=== PATIENT | female | born 1990 | race Asian ===

== ENCOUNTER 2016-12-25 15:36 | Inpatient (IN) | payer OTHER ==
[2016-12-25 19:41] VITALS: BMI 20.7
--- NOTE | 2016-12-25 20:58 | HP ---
Screened but not Admitted - Documentation of Visit Screened but not Admitted: Yes Left Prior to Completion of Assessment: No Insurance Authorization Denied: No Patient Does Not Meet Criteria for Admission: Yes Level of Care Recommended at this Time: Other (home)
--- NOTE | 2016-12-25 22:44 | HP ---
Admission ROS [facility] - [facility] Chief Complaint: I WANT TO GO TO REHAB Allergies/Adverse Reactions: Allergies Allergy/AdvReac Type Severity Reaction Status Date / Time No Known Allergies Allergy Verified 12/25/16 19:35 History of Present Illness: 26 YEARS OLD FEMALE WITH LONG HISTORY OF ALCOHOL DEPENDENCE, DENIES MEDICAL DENIES MENTAL ISSUES IS ADMITTED TO REHAB Exam Limitations: No Limitations - Ebola screening Have you traveled outside of the country in the last 21 days: No Have you had contact with anyone from an Ebola affected area: No Have you been sick,other than usual withdrawal symptoms: No Do you have a fever: No - Review of Systems Constitutional: Weight Stable EENT: reports: No Symptoms Reported Respiratory: reports: Productive cough (YELLOWISH) Cardiac: reports: No Symptoms Reported GI: reports: No Symptoms Reported : reports: No Symptoms Reported Musculoskeletal: reports: Back Pain Integumentary: reports: No Symptoms Reported Neuro: reports: No Symptoms reported Endocrine: reports: No Symptoms Reported Hematology: reports: No Symptoms Reported Psychiatric: reports: Judgement Intact, Mood/Affect Appropiate, Orientated x3, Anxious Other Systems: Reviewed and Negative Patient History - Patient Medical History Hx Anemia: No Hx Asthma: No Hx Chronic Obstructive Pulmonary Disease (COPD): No Hx Cancer: No Hx Cardiac Disorders: No Hx Congestive Heart Failure: No Hx Hypertension: No Hx Hypercholesterolemia: No Hx Pacemaker: No HX Cerebrovascular Accident: No Hx Seizures: No Hx Dementia: No Hx Diabetes: No Hx Gastrointestinal Disorders: No Hx Liver Disease: No Hx Genitourinary Disorders: No Hx Sexually Transmitted Disorders: No Hx Renal Disease (ESRD): No Hx Thyroid Disease: No Hx Human Immunodeficiency Virus (HIV): No Hx Hepatitis C: No Hx Depression: No Hx Suicide Attempt: No Hx Bipolar Disorder: No Hx Schizophrenia: No - Patient Surgical History Past Surgical History: No - PPD History Previous Implant?: Yes Documented Results: Negative w/o proof Implanted On Prior [facility] Admission?: No PPD to be Administered?: Yes - Reproductive History Patient is a Female of Child Bearing Age (11 -55 yrs old): Yes Last Menstrual Period: 12/04/16 Patient : No - Smoking Cessation Smoking history: Never smoked Have you smoked in the past 12 months: No Hx Chewing Tobacco Use: No Initiated information on smoking cessation: No - Substance & Tx. History Hx Alcohol Use: Yes Hx Substance Use: No Substance Use Type: Alcohol Hx Substance Use Treatment: No - Substances Abused Alcohol Route: Oral Frequency: 3-6 times per week Amount used: 24OZ [id number]+[id number] BEER Age of first use: 23 Date of Last Use: 12/25/16 Family Disease History - Family Disease History Family Disease History: Respiratory: Mother, Other: Father (NO CONTACT) Admission Physical Exam [facility] - Vital Signs Vital Signs: Vital Signs - 24 hr 12/25/16 19:37 Temperature 97.4 F L Pulse Rate 125 H Respiratory 18 Rate Blood Pressure 119/79 - Physical General Appearance: Yes: No Apparent Distress, Appropriately Dressed, Thin HEENTM: Yes: Hearing grossly Normal, Normal ENT Inspection, Normocephalic, Normal Voice Respiratory: Yes: Chest Non-Tender, Lungs Clear, Normal Breath Sounds, No Respiratory Distress, No Accessory Muscle Use Neck: Yes: Supple, Trachea in good position Breast: Yes: Breasts Symetrical Cardiology: Yes: Regular Rhythm, S1, S2, Tachycardia Abdominal: Yes: Non Tender, Soft Genitourinary: Yes: Within Normal Limits Back: Yes: Normal Inspection Musculoskeletal: Yes: full range of Motion, Gait Steady, Back pain Extremities: Yes: Normal Inspection, Normal Range of Motion, Non-Tender Neurological: Yes: Fully Oriented, Alert, Motor Strength 5/5, Normal Mood/Affect , Normal Response Integumentary: Yes: Warm Lymphatic: Yes: Within Normal Limits - Diagnostic (1) Alcohol dependence with uncomplicated withdrawal Current Visit: Yes Status: Acute (2) Anxiety Current Visit: Yes Status: Suspected Cleared for Admission [facility] - Detox or Rehab [facility] Level of Care: Observation Bed Detox Regimen/Protocol: Not Applicable Claeared for Rehab Admission: Yes [facility] Breath Alcohol Content Breath Alcohol Content: 0.178 Urine Pregancy Test - Result Urine Test Results: Negative- NO Line Present Urine Drug Screen - Results Drug Screen Negative: No Urine Drug Screen Results: TCA-Tricyclic Antidepress
[2016-12-25] MEDS ORDERED: MAGNESIUM CITRATE 300 ML BOTTLE PO PRN (23:08)
[2016-12-25] MEDS ORDERED: LOPERAMIDE HCL 2 MG CAPSULE PO PRN (23:08)
[2016-12-25] MEDS ORDERED: P-EPHED 60MG/TRIPROLIDI 2.5MG TABLET PO PRN (23:08)
[2016-12-25] MEDS ORDERED: MENTHOL/PHENOL 1 EACH UD MM PRN (23:08)
[2016-12-26] MEDS ORDERED: PNEUMOC 13-VAL CONJ-DIP CRM/PF 0.5 ML DISP.SYRIN IM ONE (00:28)
[2016-12-26] MEDS: diphenhydrAMINE HCL 50 MG CAPSULE PO PRN ×2 (00:37→21:19)
[2016-12-26] MEDS: guaiFENesin/D-METHORPHAN HB 10 ML UNIT-DOSE CUPS PO PRN (00:38)
--- NOTE | 2016-12-26 09:39 | HP ---
Psychiatrist Admission - Data Date of interview: 12/26/16 Admission source: [facility] Identifying data: This is the first admission to [address] [place] [address] rehabilitation for this 26 years old female no children,resides with family,unemployed supported by family. Medical History: unremarkable. Psychiatric History: denies Physical/Sexual Abuse/Trauma History: denies Vital Signs: Vital Signs - 24 hr 12/25/16 12/26/16 12/26/16 19:37 00:30 03:30 Temperature 97.4 F L 97.6 F Pulse Rate 125 H 64 Respiratory 18 18 16 Rate Blood Pressure 119/79 118/83 12/26/16 12/26/16 07:25 09:25 Temperature 98.4 F Pulse Rate 103 H 114 H Respiratory 18 Rate Blood Pressure 122/81 117/85 Allergies/Adverse Reactions: Allergies Allergy/AdvReac Type Severity Reaction Status Date / Time No Known Allergies Allergy Verified 12/25/16 19:35 Date of last physical exam: 12/25/16 Concur with the findings of this exam: Yes - Substance Abuse/Tx History Hx Alcohol Use: Yes (reports drinking since 23 yo,beer about 6 packs,vodka/ whiskey on and off) Hx Substance Use: No Substance Use Type: Alcohol Hx Substance Use Treatment: Yes (this is the first skilled nursing inpatient rehabilitation treatment ) - Admission Criteria Previous failed treatment: Yes Poor recovery environment: Yes Comorbidities: Yes Lacks judgement: Yes Mental Status Exam - Mental Status Exam Alert and Oriented to: Time, Place, Person Cognitive Function: Grossly Intact Patient Appearance: Well Groomed Mood: Euthymic Affect: Mood Congruent Patient Behavior: Cooperative Speech Pattern: Clear Voice Loudness: Normal Thought Process: Goal Oriented Thought Disorder: Not Present Hallucinations: Denies Suicidal Ideation: Denies Homicidal Ideation: Denies Insight/Judgement: Good Sleep: Fair Appetite: Good Muscle strength/Tone: Normal Gait/Station: Normal Psychiatric Findings - Problem List ([place] 1, 2,3) (1) Alcohol dependence with uncomplicated withdrawal Current Visit: Yes Status: Chronic - Initial Treatment Plan Initial Treatment Plan: Will monitor progress.
[2016-12-26] MEDS: PRENATAL VITAMINS W/ FOLIC ACID TABLET (FP) PO SCH (09:57)
[2016-12-26 10:10] LABS: URINE APPEARANCE CLEAR; URINE BILIRUBIN NEGATIVE (NEGATIVE); URINE BLOOD NEGATIVE (NEGATIVE); URINE COLOR YELLOW; URINE GLUCOSE (UA) NEGATIVE (NEGATIVE); URINE KETONE NEGATIVE (NEGATIVE); URINE LEUK ESTERASE NEGATIVE (NEGATIVE); URINE NITRITE NEGATIVE (NEGATIVE); URINE UROBILINOGEN NEGATIVE E.U./dl (0.2-1.0)
[2016-12-26 10:10] LABS: MCH 30.1 pg (25.7-33.7); MCHC 32.9 g/dl (32.0-36.0); MEAN CELL VOLUME 91.3 fl (80-96); MEAN PLT VOLUME 8.9 fl (7.5-11.1); PLATELET COUNT 207 K/MM3 (134-434); RDW 16.2 % (11.6-15.6); WHITE BLOOD COUNT 6.2 K/mm3 (4.0-10.0)
[2016-12-26 10:23] LABS: ALBUMIN 3.8 g/dl (3.4-5.0); ANION GAP 9 (8-16); CALCIUM 9.1 mg/dL (8.5-10.1); CO2 33 mmol/L (21-32); GLUCOSE,RANDOM 85 mg/dL (74-106); SGPT/ALT 106 U/L (12-78)
[2016-12-26 10:26] LABS: ALK PHOS 111 U/L (45-117); BILIRUBIN,TOTAL 0.9 mg/dL (0.2-1.0); CREATININE 0.6 mg/dL (0.55-1.02); SGOT/AST 202 U/L (15-37)
--- NOTE | 2016-12-26 11:08 | EKG ---
Test Reason : Blood Pressure : / mmHG Vent. Rate : 097 BPM Atrial Rate : 097 BPM P-R Int : 142 ms QRS Dur : 074 ms QT Int : 352 ms P-R-T Axes : 051 042 042 degrees QTc Int : 447 ms NORMAL SINUS RHYTHM POSSIBLE LEFT ATRIAL ENLARGEMENT BORDERLINE ECG NO PREVIOUS ECGS AVAILABLE Confirmed by NICHO MOURA, FRANCIE ([id number]) on 12/26/2016 11:07:38 AM Referred By: Diane Munguia Confirmed By:FRANCIE TRORE MD
[2016-12-26 11:17] LABS: URINE PROTEIN 1+ (NEGATIVE)
[2016-12-26 11:54] LABS: URINE MUCUS RARE; URINE RBC 1 /hpf (0-3); URINE WBC 1 /hpf (3-5)
[2016-12-26] MEDS ORDERED: PNEUMOCOCCAL 23 VACCINE 0.5 ML VIAL IM ONE (12:00)
[2016-12-26] MEDS ORDERED: INFLUENZA VACCINE 45 MCG/0.5 ML (MDV 16-17) IM ONE (12:00)
[2016-12-26 12:21] LABS: HIV 1 & 2 AB NEGATIVE; HIV 1 AGp24 NEGATIVE
[2016-12-26] MEDS: THIAMINE HCL 100 MG TABLET (FP) PO SCH (21:19)
[2016-12-27] MEDS: IBUPROFEN 400 MG TABLET (FP) PO PRN ×2 (07:49→21:34)
[2016-12-27] MEDS: hydrOXYzine PAMOATE 50 MG CAPSULE (FP) PO PRN (07:50)
[2016-12-27] MEDS: PRENATAL VITAMINS W/ FOLIC ACID TABLET (FP) PO SCH (10:18)
[2016-12-27] MEDS: MAG HYDROX/AL HYDROX/SIMETH 30 ML UNIT-DOSE CUP PO PRN (13:48)
[2016-12-27] MEDS: THIAMINE HCL 100 MG TABLET (FP) PO SCH (21:33)
[2016-12-27] MEDS: diphenhydrAMINE HCL 50 MG CAPSULE PO PRN (21:33)
[2016-12-28] MEDS: PRENATAL VITAMINS W/ FOLIC ACID TABLET (FP) PO SCH (10:10)
[2016-12-28] MEDS: IBUPROFEN 400 MG TABLET (FP) PO PRN ×2 (10:11→21:33)
[2016-12-28] MEDS: diphenhydrAMINE HCL 50 MG CAPSULE PO PRN (21:32)
[2016-12-28] MEDS: THIAMINE HCL 100 MG TABLET (FP) PO SCH (21:32)
--- NOTE | 2016-12-28 22:23 | PN ---
S Progress Note Note: RECEIVED NURSE INFORMED PATIENT HAS CHRONIC KNEE DISCOMFORT USE TAHIR BANDAGE FOR SUPPORT AT HOME, MAY HAVE TAHIR BANDAGE CONTINUE REHAB
[2016-12-29] MEDS: IBUPROFEN 400 MG TABLET (FP) PO PRN ×2 (10:06→21:28)
[2016-12-29] MEDS: PRENATAL VITAMINS W/ FOLIC ACID TABLET (FP) PO SCH (10:06)
[2016-12-29] MEDS: THIAMINE HCL 100 MG TABLET (FP) PO SCH (21:27)
[2016-12-29] MEDS: diphenhydrAMINE HCL 50 MG CAPSULE PO PRN (21:28)
[2016-12-30] MEDS: MAG HYDROX/AL HYDROX/SIMETH 30 ML UNIT-DOSE CUP PO PRN (09:12)
[2016-12-30] MEDS: PRENATAL VITAMINS W/ FOLIC ACID TABLET (FP) PO SCH (10:16)
[2016-12-30] MEDS: MAGNESIUM HYDROX 2400MG/30ML ORAL SUSPENSION 30 ML CUP PO PRN (19:16)
[2016-12-30] MEDS: IBUPROFEN 400 MG TABLET (FP) PO PRN (21:22)
[2016-12-30] MEDS: diphenhydrAMINE HCL 50 MG CAPSULE PO PRN (21:22)
[2016-12-30] MEDS: THIAMINE HCL 100 MG TABLET (FP) PO SCH (21:22)
[2016-12-31] MEDS: PRENATAL VITAMINS W/ FOLIC ACID TABLET (FP) PO SCH (10:06)
[2016-12-31] MEDS: IBUPROFEN 400 MG TABLET (FP) PO PRN ×2 (10:07→21:27)
[2016-12-31] MEDS ORDERED: COLLOIDAL OATMEAL 1 BAR EACH TP PRN (14:22)
[2016-12-31] MEDS: THIAMINE HCL 100 MG TABLET (FP) PO SCH (21:26)
[2016-12-31] MEDS: diphenhydrAMINE HCL 50 MG CAPSULE PO PRN (21:27)
[2017-01-01] MEDS: IBUPROFEN 400 MG TABLET (FP) PO PRN ×2 (09:00→21:38)
[2017-01-01] MEDS: PRENATAL VITAMINS W/ FOLIC ACID TABLET (FP) PO SCH (09:01)
[2017-01-01] MEDS: diphenhydrAMINE HCL 50 MG CAPSULE PO PRN (21:38)
[2017-01-01] MEDS: THIAMINE HCL 100 MG TABLET (FP) PO SCH (21:38)
[2017-01-01] MEDS: guaiFENesin/D-METHORPHAN HB 10 ML UNIT-DOSE CUPS PO PRN (23:13)
[2017-01-02] MEDS: PRENATAL VITAMINS W/ FOLIC ACID TABLET (FP) PO SCH (10:12)
[2017-01-02] MEDS: IBUPROFEN 400 MG TABLET (FP) PO PRN ×2 (11:04→21:32)
[2017-01-02] MEDS: hydrOXYzine PAMOATE 50 MG CAPSULE (FP) PO PRN (11:04)
[2017-01-02] MEDS: diphenhydrAMINE HCL 50 MG CAPSULE PO PRN (21:33)
[2017-01-02] MEDS: THIAMINE HCL 100 MG TABLET (FP) PO SCH (21:33)
[2017-01-03] MEDS: ACETAMINOPHEN 325 MG TABLET (FP) PO PRN (07:06)
[2017-01-03] MEDS: PRENATAL VITAMINS W/ FOLIC ACID TABLET (FP) PO SCH (10:08)
[2017-01-03] MEDS: IBUPROFEN 400 MG TABLET (FP) PO PRN (21:34)
[2017-01-03] MEDS: THIAMINE HCL 100 MG TABLET (FP) PO SCH (21:34)
[2017-01-03] MEDS: diphenhydrAMINE HCL 50 MG CAPSULE PO PRN (21:34)
[2017-01-04] MEDS: PRENATAL VITAMINS W/ FOLIC ACID TABLET (FP) PO SCH (10:21)
--- NOTE | 2017-01-04 14:40 | PN ---
[facility] Progress Note Note: rash left upper arm itchind,contact dermatitis,hydrocortisone dream bid
[2017-01-04] MEDS: HYDROCORTISONE 0.5% TOPICAL CREAM 30 GM TUBE TP SCH (21:28)
[2017-01-04] MEDS: THIAMINE HCL 100 MG TABLET (FP) PO SCH (21:28)
[2017-01-04] MEDS: diphenhydrAMINE HCL 50 MG CAPSULE PO PRN (21:28)
[2017-01-04] MEDS: IBUPROFEN 400 MG TABLET (FP) PO PRN (21:30)
[2017-01-05] MEDS: IBUPROFEN 400 MG TABLET (FP) PO PRN (10:04)
[2017-01-05] MEDS: HYDROCORTISONE 0.5% TOPICAL CREAM 30 GM TUBE TP SCH ×2 (10:04→23:03)
[2017-01-05] MEDS: PRENATAL VITAMINS W/ FOLIC ACID TABLET (FP) PO SCH (10:04)
[2017-01-05] MEDS: THIAMINE HCL 100 MG TABLET (FP) PO SCH (21:24)
[2017-01-05] MEDS: diphenhydrAMINE HCL 50 MG CAPSULE PO PRN (21:25)
[2017-01-06] MEDS: IBUPROFEN 400 MG TABLET (FP) PO PRN ×2 (07:19→21:35)
[2017-01-06] MEDS: PRENATAL VITAMINS W/ FOLIC ACID TABLET (FP) PO SCH (09:43)
[2017-01-06] MEDS: HYDROCORTISONE 0.5% TOPICAL CREAM 30 GM TUBE TP SCH ×2 (09:43→21:36)
[2017-01-06] MEDS: THIAMINE HCL 100 MG TABLET (FP) PO SCH (21:35)
[2017-01-06] MEDS: diphenhydrAMINE HCL 50 MG CAPSULE PO PRN (21:35)
[2017-01-07] MEDS: IBUPROFEN 400 MG TABLET (FP) PO PRN ×2 (06:34→21:39)
[2017-01-07] MEDS: HYDROCORTISONE 0.5% TOPICAL CREAM 30 GM TUBE TP SCH ×2 (10:16→21:39)
[2017-01-07] MEDS: PRENATAL VITAMINS W/ FOLIC ACID TABLET (FP) PO SCH (10:16)
[2017-01-07] MEDS: diphenhydrAMINE HCL 50 MG CAPSULE PO PRN (21:38)
[2017-01-07] MEDS: THIAMINE HCL 100 MG TABLET (FP) PO SCH (21:38)
[2017-01-08] MEDS: PRENATAL VITAMINS W/ FOLIC ACID TABLET (FP) PO SCH (10:22)
[2017-01-08] MEDS: HYDROCORTISONE 0.5% TOPICAL CREAM 30 GM TUBE TP SCH ×2 (10:22→21:22)
[2017-01-08] MEDS: IBUPROFEN 400 MG TABLET (FP) PO PRN ×2 (11:31→21:24)
[2017-01-08] MEDS: METHYL SALICYLATE/MENTHOL OINT 30 GM TUBE TP SCH ×2 (15:12→21:23)
[2017-01-08] MEDS: MAGNESIUM HYDROX 2400MG/30ML ORAL SUSPENSION 30 ML CUP PO PRN (18:47)
[2017-01-08] MEDS: THIAMINE HCL 100 MG TABLET (FP) PO SCH (21:22)
[2017-01-08] MEDS: diphenhydrAMINE HCL 50 MG CAPSULE PO PRN (21:24)
[2017-01-09] MEDS: METHYL SALICYLATE/MENTHOL OINT 30 GM TUBE TP SCH ×2 (10:17→23:33)
[2017-01-09] MEDS: PRENATAL VITAMINS W/ FOLIC ACID TABLET (FP) PO SCH (10:17)
[2017-01-09] MEDS: HYDROCORTISONE 0.5% TOPICAL CREAM 30 GM TUBE TP SCH ×2 (10:17→21:43)
[2017-01-09] MEDS: ACETAMINOPHEN 325 MG TABLET (FP) PO PRN (13:32)
[2017-01-09] MEDS: THIAMINE HCL 100 MG TABLET (FP) PO SCH (21:42)
[2017-01-09] MEDS: diphenhydrAMINE HCL 50 MG CAPSULE PO PRN (21:42)
[2017-01-10] MEDS: METHYL SALICYLATE/MENTHOL OINT 30 GM TUBE TP SCH ×2 (10:39→21:39)
[2017-01-10] MEDS: PRENATAL VITAMINS W/ FOLIC ACID TABLET (FP) PO SCH (10:39)
[2017-01-10] MEDS: HYDROCORTISONE 0.5% TOPICAL CREAM 30 GM TUBE TP SCH ×2 (10:39→21:39)
[2017-01-10] MEDS: IBUPROFEN 400 MG TABLET (FP) PO PRN (10:40)
[2017-01-10] MEDS: THIAMINE HCL 100 MG TABLET (FP) PO SCH (21:38)
[2017-01-10] MEDS: diphenhydrAMINE HCL 50 MG CAPSULE PO PRN (21:38)
[2017-01-11] MEDS: IBUPROFEN 400 MG TABLET (FP) PO PRN (07:37)
[2017-01-11] MEDS: MAGNESIUM HYDROX 2400MG/30ML ORAL SUSPENSION 30 ML CUP PO PRN (07:39)
[2017-01-11] MEDS ORDERED: PT OWN MED DRAWER 7, Y5N ONE (08:38)
[2017-01-11] MEDS: HYDROCORTISONE 0.5% TOPICAL CREAM 30 GM TUBE TP SCH ×2 (10:31→21:39)
[2017-01-11] MEDS: PRENATAL VITAMINS W/ FOLIC ACID TABLET (FP) PO SCH (10:31)
[2017-01-11] MEDS: METHYL SALICYLATE/MENTHOL OINT 30 GM TUBE TP SCH ×2 (10:32→21:39)
--- NOTE | 2017-01-11 13:41 | PN ---
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 ROS: unremarkable Current Medications: Active Medications Generic Name Dose Route Start Last Admin Trade Name Freq PRN Reason Stop Dose Admin Acamprosate 666 mg 01/11/17 14:00 Campral - PO TID RIZWAN Acetaminophen 650 mg 12/25/16 23:08 01/09/17 13:32 Tylenol - PO 650 mg Q4H PRN Administration PAIN Al Hydroxide/Mg Hydroxide 30 ml 12/25/16 23:08 12/30/16 09:12 Mylanta Oral Suspension - PO 30 ml Q6H PRN Administration DYSPEPSIA Colloidal Oatmeal 1 applic 12/31/16 14:22 01/03/17 18:46 Aveeno Soap - TP 1 applic DAILY PRN Administration HYGEINE Diphenhydramine HCl 100 mg 01/07/17 16:08 01/10/17 21:38 Benadryl - PO 100 mg HS PRN Administration INSOMNIA Eucalyptus/Menthol/Phenol/Sorbitol 1 each 12/25/16 23:08 Cepastat Lozenge - MM Q4H PRN SORE THROAT Guaifenesin 10 ml 12/25/16 23:08 01/01/17 23:13 Robitussin Dm - PO 10 ml Q6H PRN Administration COUGH Hydrocortisone 1 applic 01/04/17 22:00 01/11/17 10:31 Hytone 0.5% Cream - TP 1 applic BID RIZWAN Administration Hydroxyzine Pamoate 50 mg 12/25/16 23:08 01/02/17 11:04 Vistaril - PO 50 mg Q4H PRN Administration AGITATION Ibuprofen 800 mg 01/03/17 14:32 01/11/17 07:37 Motrin - PO 800 mg Q6H PRN Administration SEVERE PAIN Loperamide HCl 4 mg 12/25/16 23:08 Imodium - PO Q6H PRN DIARRHEA Magnesium Citrate 300 ml 12/25/16 23:08 01/07/17 10:44 Citroma - PO 300 ml Q48H PRN Administration CONSTIPATION Magnesium Hydroxide 30 ml 12/25/16 23:08 01/11/17 07:39 Milk Of Magnesia - PO 30 ml DAILY PRN Administration CONSTIPATION Methyl Salicylate 1 applic 01/08/17 13:15 01/11/17 10:32 Dequan-Rhoades - TP Not Given BID RIZWAN Multivit/Folic Acid/Iron 1 tab 12/26/16 10:00 01/11/17 10:31 Vitamins ([facility]) - PO 1 tab DAILY RIZWAN Administration Pseudoephedrine/Triprolidine 1 combo 12/25/16 23:08 Actifed - PO TID PRN NASAL CONGESTION Thiamine HCl 100 mg 12/26/16 22:00 01/10/17 21:38 Vitamin B1 - PO 100 mg HS RIZWAN Administration Current Side Effect: No Lab tests ordered: No Lab tests reviewed: Yes Provider note:: Chart ws revuewed,patient was evaluated and treatment plan has been discussed with the patient including medication management.Patient reports still some craving for alcohol stating that she she is thinking a lot about her problems.She is willing to start Campral while she is in inpatient facility ( benefits and side effects of Campral has been dicussed with the patient) .Campral 333 mg 2 tab po tid will be started today. Supportive therapy provided. Total face to face time:: 35 Mental Status Exam - Mental Status Exam Alert and Oriented to: Time, Place, Person Cognitive Function: Grossly Intact Patient Appearance: Well Groomed Mood: Euthymic Affect: Mood Congruent Patient Behavior: Cooperative Speech Pattern: Clear Voice Loudness: Normal Thought Process: Goal Oriented Thought Disorder: Not Present Hallucinations: Denies Suicidal Ideation: Denies Homicidal Ideation: Denies Insight/Judgement: Fair Sleep: Fair Muscle strength/Tone: Normal Gait/Station: Normal Psychiatric Treatment Plan - Problem List (1) Alcohol dependence with uncomplicated withdrawal Current Visit: Yes
[2017-01-11] MEDS: ACAMPROSATE CALCIUM 333 MG TABLET.DR PO SCH ×2 (14:22→21:37)
[2017-01-11] MEDS: diphenhydrAMINE HCL 50 MG CAPSULE PO PRN (21:38)
[2017-01-11] MEDS: THIAMINE HCL 100 MG TABLET (FP) PO SCH (21:38)
[2017-01-12] MEDS: ACAMPROSATE CALCIUM 333 MG TABLET.DR PO SCH ×3 (06:59→21:29)
[2017-01-12] MEDS: IBUPROFEN 400 MG TABLET (FP) PO PRN ×2 (09:32→21:30)
[2017-01-12] MEDS: PRENATAL VITAMINS W/ FOLIC ACID TABLET (FP) PO SCH (09:32)
[2017-01-12] MEDS: METHYL SALICYLATE/MENTHOL OINT 30 GM TUBE TP SCH ×2 (09:33→21:30)
[2017-01-12] MEDS: HYDROCORTISONE 0.5% TOPICAL CREAM 30 GM TUBE TP SCH ×2 (09:34→21:30)
[2017-01-12] MEDS ORDERED: PT OWN MED DRAWER 7, Y5N ONE (20:01)
[2017-01-12] MEDS: THIAMINE HCL 100 MG TABLET (FP) PO SCH (21:29)
[2017-01-12] MEDS: diphenhydrAMINE HCL 50 MG CAPSULE PO PRN (21:31)
[2017-01-13] MEDS: ACAMPROSATE CALCIUM 333 MG TABLET.DR PO SCH ×3 (06:27→21:33)
[2017-01-13] MEDS: IBUPROFEN 400 MG TABLET (FP) PO PRN ×2 (06:28→22:03)
[2017-01-13] MEDS ORDERED: PT OWN MED DRAWER 7, Y5N ONE (08:18)
[2017-01-13] MEDS: PRENATAL VITAMINS W/ FOLIC ACID TABLET (FP) PO SCH (10:12)
[2017-01-13] MEDS: HYDROCORTISONE 0.5% TOPICAL CREAM 30 GM TUBE TP SCH ×2 (10:12→22:03)
[2017-01-13] MEDS: METHYL SALICYLATE/MENTHOL OINT 30 GM TUBE TP SCH ×2 (10:12→22:03)
[2017-01-13] MEDS: diphenhydrAMINE HCL 50 MG CAPSULE PO PRN (21:33)
[2017-01-13] MEDS: THIAMINE HCL 100 MG TABLET (FP) PO SCH (21:33)
[2017-01-14] MEDS: ACAMPROSATE CALCIUM 333 MG TABLET.DR PO SCH ×3 (06:48→21:49)
[2017-01-14] MEDS: IBUPROFEN 400 MG TABLET (FP) PO PRN ×2 (06:49→18:57)
[2017-01-14] MEDS ORDERED: PT OWN MED DRAWER 7, Y5N ONE ×2 (08:40→20:14)
[2017-01-14] MEDS: PRENATAL VITAMINS W/ FOLIC ACID TABLET (FP) PO SCH (10:17)
[2017-01-14] MEDS: METHYL SALICYLATE/MENTHOL OINT 30 GM TUBE TP SCH ×2 (10:18→21:49)
[2017-01-14] MEDS: HYDROCORTISONE 0.5% TOPICAL CREAM 30 GM TUBE TP SCH ×2 (10:18→21:50)
--- NOTE | 2017-01-14 14:55 | PN ---
Psychiatric Progress Note Vital Signs: Vital Signs Period Temp Pulse Resp BP Sys/Baltazar Pulse Ox Last 24 Hr 97.9 F 82 16-18 91/66 Date of Session: 01/14/17 Chief Complaint:: discharge visit HPI: Patient is addressing Alcohol dependence comorbid with Alcohol induced sleep disorder. Current Medications: Active Medications Generic Name Dose Route Start Last Admin Trade Name Freq PRN Reason Stop Dose Admin Acamprosate 666 mg 01/11/17 14:00 01/14/17 14:22 Campral - PO 666 mg TID RIZWAN Administration Acetaminophen 650 mg 12/25/16 23:08 01/09/17 13:32 Tylenol - PO 650 mg Q4H PRN Administration PAIN Al Hydroxide/Mg Hydroxide 30 ml 12/25/16 23:08 12/30/16 09:12 Mylanta Oral Suspension - PO 30 ml Q6H PRN Administration DYSPEPSIA Colloidal Oatmeal 1 applic 12/31/16 14:22 01/03/17 18:46 Aveeno Soap - TP 1 applic DAILY PRN Administration HYGEINE Diphenhydramine HCl 100 mg 01/07/17 16:08 01/13/17 21:33 Benadryl - PO 100 mg HS PRN Administration INSOMNIA Eucalyptus/Menthol/Phenol/Sorbitol 1 each 12/25/16 23:08 Cepastat Lozenge - MM Q4H PRN SORE THROAT Guaifenesin 10 ml 12/25/16 23:08 01/01/17 23:13 Robitussin Dm - PO 10 ml Q6H PRN Administration COUGH Hydrocortisone 1 applic 01/04/17 22:00 01/14/17 10:18 Hytone 0.5% Cream - TP Not Given BID RIZWAN Hydroxyzine Pamoate 50 mg 12/25/16 23:08 01/02/17 11:04 Vistaril - PO 50 mg Q4H PRN Administration AGITATION Ibuprofen 800 mg 01/03/17 14:32 01/14/17 06:49 Motrin - PO 800 mg Q6H PRN Administration SEVERE PAIN Loperamide HCl 4 mg 12/25/16 23:08 Imodium - PO Q6H PRN DIARRHEA Magnesium Citrate 300 ml 12/25/16 23:08 01/07/17 10:44 Citroma - PO 300 ml Q48H PRN Administration CONSTIPATION Magnesium Hydroxide 30 ml 12/25/16 23:08 01/11/17 07:39 Milk Of Magnesia - PO 30 ml DAILY PRN Administration CONSTIPATION Methyl Salicylate 1 applic 01/08/17 13:15 01/14/17 10:18 Eliceo-Rhoades - TP Not Given BID RIZWAN Multivit/Folic Acid/Iron 1 tab 12/26/16 10:00 01/14/17 10:17 Vitamins ([facility]) - PO 1 tab DAILY RIZWAN Administration Pseudoephedrine/Triprolidine 1 combo 12/25/16 23:08 Actifed - PO TID PRN NASAL CONGESTION Thiamine HCl 100 mg 12/26/16 22:00 01/13/17 21:33 Vitamin B1 - PO 100 mg HS RIZWAN Administration Current Side Effect: No Lab tests ordered: No Lab tests reviewed: Yes Provider note:: Patient will complete her treatent and meet her goals on 01/15/17 , will continue to address her issues at the next level of care. She gained insights on her addiction and motivated to continue maintain abstinence. She reports that Campral has eliceo effective in reducing her alcohol craving, medication well tolerated and script provided for 1 month supply. Patiet was encouraged to utilize all supports available to prevent relapses, patient is stable for discharge on 01/15/17. Total face to face time:: 30 Mental Status Exam - Mental Status Exam Alert and Oriented to: Time, Place, Person Cognitive Function: Good Patient Appearance: Well Groomed Mood: Hopeful Affect: Appropriate, Normal Range Patient Behavior: Appropriate, Cooperative Speech Pattern: Clear, Appropriate Voice Loudness: Normal Thought Process: Intact, Goal Oriented Thought Disorder: Not Present Hallucinations: Denies Suicidal Ideation: Denies Homicidal Ideation: Denies Insight/Judgement: Fair Sleep: Fair Appetite: Good Muscle strength/Tone: Normal Gait/Station: Normal Psychiatric Treatment Plan - Problem List (1) Alcohol dependence Current Visit: Yes (2) Alcohol-induced sleep disorder Current Visit: Yes
[2017-01-14] MEDS: THIAMINE HCL 100 MG TABLET (FP) PO SCH (21:49)
[2017-01-14] MEDS: diphenhydrAMINE HCL 50 MG CAPSULE PO PRN (21:50)
[2017-01-15] MEDS: ACAMPROSATE CALCIUM 333 MG TABLET.DR PO SCH (06:53)
[2017-01-15] MEDS: IBUPROFEN 400 MG TABLET (FP) PO PRN (06:54)
[2017-01-15 07:32] VITALS: BP 113/72; PULSE 98; TEMP 98.4
[2017-01-15] MEDS ORDERED: PT OWN MED DRAWER 7, Y5N ONE (08:58)
[2017-01-15] MEDS: PRENATAL VITAMINS W/ FOLIC ACID TABLET (FP) PO SCH (09:28)
[2017-01-15] MEDS: METHYL SALICYLATE/MENTHOL OINT 30 GM TUBE TP SCH (09:28)
[2017-01-15] MEDS: HYDROCORTISONE 0.5% TOPICAL CREAM 30 GM TUBE TP SCH (09:28)
== END 2017-01-15 09:58 | disposition home or self-care (01) | DRG 772 ==
LOC: YASAS 15:36 → Y3E 19:03
PROVIDERS: ADMIT Psychiatry & Neurology Psychiatry; ATTEND Psychiatry & Neurology Psychiatry
PROC: HZ42ZZZ Group Counseling for Substance Abuse Treatment, Cognitive-Behavioral (ICD-10-PCS; principal; 2017-01-15)
DX: F10.230 Alcohol dependence with withdrawal, uncomplicated (principal); F10.282 Alcohol dependence with alcohol-induced sleep disorder
CPT/HCPCS: 36415; 80053; 81003; 81015; 85027; 86593; 87389; 90732; 93005; 93010; G0009

== ENCOUNTER 2025-03-27 16:56 | Inpatient (IN) | payer OTHER ==
[2025-03-27 17:43] VITALS: BMI 19.3
[2025-03-27] MEDS ORDERED: POLYETHYLENE GLYCOL (HEALTHYLAX) 3350 17 GM PACKET PO PRN (20:59)
[2025-03-27] MEDS ORDERED: NICOTINE POLACRILEX 2 MG GUM BUC PRN (20:59)
[2025-03-27] MEDS ORDERED: ACETAMINOPHEN 325 MG TABLET (FP) PO PRN (20:59)
[2025-03-27] MEDS ORDERED: BENZOCAINE/MENTHOL (CHLORASEPTIC ) LOZENGE MM PRN (20:59)
[2025-03-27] MEDS ORDERED: BENZONATATE 200 MG CAPSULE PO PRN (20:59)
[2025-03-27] MEDS ORDERED: NALOXONE (NARCAN) HCL 4 MG/0.1 ML SPRAY NS PRN (20:59)
[2025-03-27] MEDS ORDERED: LOPERAMIDE HCL 2 MG CAPSULE PO PRN (20:59)
[2025-03-27] MEDS ORDERED: DICYCLOMINE HCL 10 MG CAPSULE PO PRN (20:59)
[2025-03-27] MEDS ORDERED: guaiFENesin 600 MG TABLET.ER (FP) PO PRN (20:59)
[2025-03-27] MEDS ORDERED: ONDANSETRON *ODT* 4 MG TABLET SL PRN (20:59)
[2025-03-27] MEDS ORDERED: MAG HYDROX/AL HYDROX/SIMETH 30 ML UNIT-DOSE CUP PO PRN (20:59)
[2025-03-27] MEDS ORDERED: MELATONIN 5 MG TABLETS ONE (22:19)
[2025-03-27] MEDS ORDERED: levETIRAcetam 500 MG TABLET (FP) PO ONE (22:19)
[2025-03-27] MEDS: levETIRAcetam 500 MG TABLET (FP) PO SCH (22:20)
[2025-03-27] MEDS: MELATONIN 5 MG TABLETS PO SCH (22:20)
[2025-03-27] MEDS: THIAMINE 100 MG TABLET PO SCH (22:20)
[2025-03-27] MEDS: IBUPROFEN 400 MG TABLET (FP) PO PRN (22:21)
[2025-03-27] MEDS ORDERED: IBUPROFEN 400 MG TABLET (FP) PO ONE (22:22)
[2025-03-27] MEDS: LORazepam 2 MG TABLET PO SCH (23:03)
[2025-03-28 09:38] LABS: HEMATOCRIT 40.2 % (34.1-44.9); HEMOGLOBIN 12.5 g/dL (11.2-15.7); MCHC 31.1 g/dl (32.2-35.5); MEAN CELL VOLUME 91.4 fl (79.4-94.8); MEAN PLT VOLUME 10.7 fl (9.4-12.3); PLATELET COUNT 251 x10^3/uL (182-369); RDW 17.2 % (12.1-16.8)
[2025-03-28 09:46] LABS: CHLORIDE 95 mmol/L (98-107); POTASSIUM 3.3 mmol/L (3.5-5.1); SODIUM 136 mmol/L (136-145)
[2025-03-28 10:05] LABS: ANION GAP 11 mmol/L (4-13); BLOOD UREA NITROGEN 9.7 mg/dL (7-18); CO2 30 mmol/L (21-32); GLUCOSE,RANDOM 115 mg/dL (74-106)
[2025-03-28] MEDS: IBUPROFEN 600 MG TABLET (FP) PO PRN (10:05)
[2025-03-28] MEDS: METHOCARBAMOL 500 MG TABLET PO PRN (10:05)
[2025-03-28] MEDS: PRENATAL VITAMINS W/ FOLIC ACID TABLET (FP) PO SCH (10:05)
[2025-03-28 10:08] LABS: CREATININE 0.7 mg/dL (0.55-1.3); SGOT/AST 217 U/L (15-37); SGPT/ALT 139 U/L (13-61); TOT PROT 8.5 g/dl (6.4-8.2)
[2025-03-28] MEDS: BISMUTH SUBSALICYLATE 524 MG/30 ML PO PRN (10:09)
[2025-03-28 10:11] LABS: ALK PHOS 100 U/L (45-117)
[2025-03-28 10:12] LABS: BILIRUBIN,TOTAL 1.5 mg/dL (0.2-1)
[2025-03-28] MEDS: LACTULOSE 20 GM/30 ML UDC (FOR ORAL USE ONLY) PO SCH (14:37)
[2025-03-28] MEDS: MELATONIN 5 MG TABLETS PO SCH (22:43)
[2025-03-29] MEDS: LORazepam 1 MG TABLET PO SCH (06:05)
[2025-03-29] MEDS: MAGNESIUM HYDROX 2400MG/30ML ORAL SUSPENSION 30 ML CUP PO PRN (06:07)
[2025-03-29] MEDS: POTASSIUM CHLORIDE ORAL LIQUID 20 MEQ/15 ML PO ONE (10:15)
[2025-03-29] MEDS: LIDOCAINE 5% TOPICAL PATCH TP SCH (13:50)
[2025-03-29] MEDS: LORazepam 1 MG TABLET PO PRN (18:05)
[2025-03-29] MEDS: LIDOCAINE PATCH REMOVAL MC SCH (22:24)
[2025-03-30] MEDS ORDERED: LORazepam 0.5 MG TABLET PO PRN
[2025-03-30] MEDS: LORazepam 0.5 MG TABLET PO SCH (05:42)
[2025-03-30 12:23] LABS: POTASSIUM 3.6 mmol/L (3.5-5.1)
[2025-03-30 12:27] LABS: BLOOD UREA NITROGEN 12.4 mg/dL (7-18)
[2025-03-30 12:29] LABS: CALCIUM 11.1 mg/dL (8.5-10.1)
[2025-03-30 12:31] LABS: CREATININE 0.9 mg/dL (0.55-1.3)
[2025-03-30] MEDS: hydrOXYzine PAMOATE 25 MG CAPSULE (FP) PO PRN (17:07)
[2025-03-31] MEDS: LORazepam 0.5 MG TABLET PO ONE (06:05)
[2025-03-31 13:05] VITALS: BP 108/81; PULSE 98; RESP 18; TEMP 95.5
== END 2025-03-31 13:05 | disposition other institution (70) | DRG 775 ==
LOC: YASAS 16:56 → Y3N 21:18
PROVIDERS: ADMIT Allergy & Immunology; ATTEND Allergy & Immunology
PROC: HZ2ZZZZ Detoxification Services for Substance Abuse Treatment (ICD-10-PCS; principal; 2025-03-27)
DX: F10.230 Alcohol dependence with withdrawal, uncomplicated (principal); F17.210 Nicotine dependence, cigarettes, uncomplicated; F10.282 Alcohol dependence with alcohol-induced sleep disorder; F10.280 Alcohol dependence with alcohol-induced anxiety disorder; F41.9 Anxiety disorder, unspecified; F32.A Depression, unspecified; F43.10 Post-traumatic stress disorder, unspecified; K21.9 Gastro-esophageal reflux disease without esophagitis; K70.0 Alcoholic fatty liver; R74.01 Elevation of levels of liver transaminase levels; Z62.810 Personal history of physical and sexual abuse in childhood; Z63.8 Other specified problems related to primary support group
CPT/HCPCS: 36415; 71046-TC-FY; 80048; 80053; 80305; 80307; 81025; 82140; 85027; 86780; 93005; 93010